=== PATIENT | male | born 1950 | race Caucasian/White ===

== ENCOUNTER 2023-11-17 01:14 | Emergency (ER) | payer MEDICARE ==
[2023-11-17 01:35] VITALS: TEMP 98.2
[2023-11-17 03:00] LABS: Appearance Clear (Clear); Bilirubin Negative (Negative); Blood Negative (Negative); Glucose, Urine Negative (Negative); Ketones Negative (Negative); Leukocyte Esterase Negative (Negative); Nitrite Negative (Negative); Ph 7.5 (4.6-8.0); Protein,Urine Dip 30 (Negative); Urobilinogen 0.2 mg/dL (0.2)
[2023-11-17 03:02] LABS: ADD URINE CULTURE? NO (NO); Bacteria None Seen /HPF (None Seen); Epithelial Cells None Seen /HPF (None Seen); Hyaline Casts NONE SEEN /LPF (0-2); RBC 0-2 /HPF (0-5); WBC 0-2 /HPF (0-5)
[2023-11-17 03:17] VITALS: O2SAT 96
--- NOTE | 2023-11-17 04:02 | ERPHSYRPT ---
- History of Present Illness Time Seen by Provider: 11/17/23 04:01 Patient Subjective Stated Complaint: per ems patient called ambulance for increased in frequency of urination that started within the last few hours Triage Nursing Assessment: pt arrived by [facility] ems, pt ambulatory from ems cot to ER cot with assist x 1 with his personal cane as well, pt alert and oriented x3, skin pwd, pt c/o an increase in frequency of urination, pt denies any pain/discomfort, fever, body aches, abnormal color of urine. pt is in zero pain. pt is hypertensive but has stopped taking his home medication including his bp medication a few years ago, pt states his PCP is Dr. Tillman but has not been seen for a least a year per pt. Physician History: 73 years old male with a history of hypertension not taking any medications presented in the ER with complaints of increased urinary frequency started almost 2 to 3 hours ago. Patient reports he has a constant urge to go without any dysuria. No flank pain. Denies any hematuria. No abdominal pain nausea or vomiting, fever or chills reported. Patient has no other complaints. Increased urinary frequency. Allergies/Adverse Reactions: No Known Drug Allergies Allergy (Verified 11/17/23 01:18) Hx Tetanus, Diphtheria Vaccination/Date Given: No (unknown) Hx Influenza Vaccination/Date Given: No (2014) Hx Pneumococcal Vaccination/Date Given: No (unknown) Immunizations Up to Date: No Travel Risk - International Travel Have you traveled outside of the country in past 3 weeks: No - Coronavirus Screening Are you exhibiting any of the following symptoms?: No Close contact with a COVID-19 positive Pt in past 14-21 Days: No - Vaccine Status Have you recieved a Covid-19 vaccination: No - Past Medical History Pertinent Past Medical History: Yes Neurological History: No Pertinent History ENT History: Other Cardiac History: High Cholesterol, Hypertension Respiratory History: Sleep Apnea Endocrine Medical History: No Pertinent History Musculoskeletal History: Fractures GI Medical History: No Pertinent History History: No Pertinent History Psycho-Social History: No Pertinent History Male Reproductive Disorders: No Pertinent History Other Medical History: detached retina, both arms have broke. Rotator cuff surgery on the right. Broke left arm in February 2013 - Past Surgical History Past Surgical History: Yes Neuro Surgical History: No Pertinent History Cardiac: No Pertinent History Respiratory: No Pertinent History Gastrointestinal: No Pertinent History Genitourinary: No Pertinent History Musculoskeletal: Orthopedic Surgery Male Surgical History: No Pertinent History Other Surgical History: eye surgery, bryce arm fx, rotator cuff - Social History Smoking Status: Never smoker Exposure to second hand smoke: No Drug Use: none Patient Lives Alone: No - Review of Systems Constitutional: No Symptoms Eyes: No Symptoms Respiratory: No Symptoms Cardiac: No Symptoms Abdominal/Gastrointestinal: No Symptoms Genitourinary Symptoms: Frequency Musculoskeletal: No Symptoms Neurological: No Symptoms Endocrine: No Symptoms - Nursing Vital Signs Nursing Vital Signs: Initial Vital Signs Temperature 98.2 F 11/17/23 01:19 Pulse Rate 82 11/17/23 01:19 Respiratory Rate 18 11/17/23 01:19 Blood Pressure 210/110 11/17/23 01:19 O2 Sat by Pulse Oximetry 96 11/17/23 01:19 Pain Scale Pain Intensity 0 - Physical Exam General Appearance: no apparent distress Eye Exam: PERRL/EOMI Ears, Nose, Throat Exam: normal ENT inspection Neck Exam: normal inspection, non-tender, supple, full range of motion Respiratory Exam: normal breath sounds, lungs clear Cardiovascular Exam: regular rate/rhythm, normal heart sounds Gastrointestinal/Abdomen Exam: soft, normal bowel sounds, No tenderness Back Exam: normal inspection, No CVA tenderness Extremity Exam: normal inspection, normal range of motion Neurologic Exam: alert, oriented x 3, cooperative SpO2 Interpretation: normal SpO2: 96 O2 Delivery: Room Air Ordered Tests: Active Orders 24 hr Category Date Time Status UA W/RFX UR CULTURE Stat Lab 11/17/23 02:45 Completed Medication Summary Discontinued Medications Generic Name Dose Route Start Last Admin Trade Name Mary PRN Reason Stop Dose Admin Clonidine 0.2 mg 11/17/23 04:33 11/17/23 04:35 Clonidine Hcl 0.1 Mg Tablet PO 11/17/23 04:34 0.2 mg STAT ONE Administration Clonidine Confirm 11/17/23 04:33 Clonidine Hcl 0.1 Mg Tablet Administered 11/17/23 04:34 Dose 0.2 mg .ROUTE .STK-MED ONE Lab/Rad Data: Laboratory Results 11/17/23 Range/Units 02:45 Urine Color Yellow (Yellow) Urine Appearance Clear (Clear) Urine pH 7.5 (4.6-8.0) Ur Specific [place] 1.010 (1.005-1.030) Urine Protein 30 (Negative) Urine Glucose (UA) Negative (Negative) mg/dL Urine Ketones Negative (Negative) Urine Blood Negative (Negative) Urine Nitrite Negative (Negative) Urine Bilirubin Negative (Negative) Urine Urobilinogen 0.2 (0.2) mg/dL Ur Leukocyte Esterase Negative (Negative) U Hyaline Cast (Auto) NONE SEEN (0-2) /LPF Urine Microscopic RBC 0-2 (0-5) /HPF Urine Microscopic WBC 0-2 (0-5) /HPF Ur Epithelial Cells None Seen (None Seen) /HPF Urine Bacteria None Seen (None Seen) /HPF Urine Culture Reflexed NO (NO) - Progress Progress: improved Progress Note: 11/17/23 04:59 73 years old is evaluated in the ER for increased urinary frequency. Patient has no other complaints. Has no UTI. Patient urinated only once while in the ER. Is possible or related to BPH but patient denies complaint of incomplete voiding as or hesitancy. Also symptoms started few hours ago. I do not think patient needs antibiotics. Recommended outpatient follow-up. Patient blood pressure is also elevated in 200s and patient is supposed to be taking an tihypertensive but stopped taking on its own long time ago. I have given him clonidine at his blood pressure is improved. I have sent the prescription of losartan/hydrochlorothiazide to pharmacy and advised patient to have outpatient follow-up early next week. Discussed signs symptoms of worsening needing return to ER which she seems understanding. Stable for discharge. Counseled pt/family regarding: lab results, diagnosis Medical Desision Making - Independent Historian Additional History obtained from: Sap Functional Analyst/EMT - Diagnostic Testing Diagnostic test were ordered, analyzed, and reviewed by me: Yes - Departure Departure Disposition: Home Clinical Impression: Increased urinary frequency Condition: Stable Critical Care Time: No Referrals: YURI TILLMAN MD [Primary Care Provider] - Follow up with PCP 1 day Instructions: High Blood Pressure (DC), Malignant Hypertension (DC) Additional Instructions: Keep yourself well-hydrated. Take low-salt diet, regular exercise, monitor your blood pressure regularly, keep a log and take it to your PCP. Follow-up with primary care for reevaluation in 1 to 2 days. Return to ER for worsening symptoms of increased frequency or if have incomplete voiding, hesitancy, urgency, fever chills or flank pain. Prescriptions: Losartan/Hydrochlorothiazide [Losartan-Hctz 50-12.5 mg Tab] 1 each PO DAILY 30 Days #30 tablet
[2023-11-17] MEDS ORDERED: CLONIDINE 0.1 MG TABLET ONE (04:33)
[2023-11-17] MEDS: CLONIDINE 0.1 MG TABLET PO ONE (04:35)
[2023-11-17 05:04] VITALS: BP 126/64; PULSE 66; RESP 15
== END 2023-11-17 05:35 | disposition home or self-care (01) ==
LOC: ED 01:14
DX: R35.0 Frequency of micturition (principal); I10 Essential (primary) hypertension; Z28.310 Unvaccinated for COVID-19
CPT/HCPCS: 81001; 99283; A9270-GY

== ENCOUNTER 2024-05-10 07:48 | Emergency (ER) | payer MEDICARE ==
[2024-05-10 08:02] VITALS: TEMP 97.7
--- NOTE | 2024-05-10 08:02 | ERPHSYRPT ---
- History of Present Illness Time Seen by Provider: 05/10/24 08:01 Source: patient Exam Limitations: no limitations Physician History: The patient presented with acute onset of vomiting and dizziness upon waking up in the morning. He denied any exacerbation of dizziness with head movements or changes in vision. The patient reported a history of monocular vision but stated that there was no recent change in his visual acuity. He confirmed episodes of vomiting but denied the presence of blood in the vomitus. The patient denied any recent illness, cough, congestion, or exposure to sick contacts. He also denied any abdominal pain. The patient has a chronic issue with his foot, characterized by redness and swelling, which he attributed to a past event of blood pooling in the ankle. The exact timeline of this issue was unclear to the patient. He also reported a per sistent headache. The patient denied any known heart valve issues. The patient's last bowel movement was the previous night, which he described as typically being diarrheal, depending on his diet. He reported no shortness of breath. The patient has a history of hypertension and diabetes, for which he previously took blood pressure medication and metformin, respectively. However, he reported discontinuing all medications except for occasional Tylenol. The reason for discontinuation was unclear but seemed to be related to accessibility issues. Timing/Duration: today Severity: moderate Modifying Factors: Improves With: nothing. Worsens With: movement Associated Symptoms: nausea, vomiting, loss of appetite, weakness, No abdominal pain, No shortness of breath, No chest pain, No fever, No headaches Allergies/Adverse Reactions: No Known Drug Allergies Allergy (Verified 05/10/24 07:51) Hx Tetanus, Diphtheria Vaccination/Date Given: No (unknown) Hx Influenza Vaccination/Date Given: No (2014) Hx Pneumococcal Vaccination/Date Given: No (unknown) - Review of Systems All Other Systems: Reviewed and Negative - Past Medical History Pertinent Past Medical History: Yes Neurological History: No Pertinent History ENT History: Other Cardiac History: High Cholesterol, Hypertension Respiratory History: Sleep Apnea Endocrine Medical History: No Pertinent History Musculoskeletal History: Fractures GI Medical History: No Pertinent History History: No Pertinent History Psycho-Social History: No Pertinent History Male Reproductive Disorders: No Pertinent History Other Medical History: detached retina, both arms have broke. Rotator cuff surgery on the right. Broke left arm in February 2013 - Past Surgical History Past Surgical History: Yes Neuro Surgical History: No Pertinent History Cardiac: No Pertinent History Respiratory: No Pertinent History Gastrointestinal: No Pertinent History Genitourinary: No Pertinent History Musculoskeletal: Orthopedic Surgery Male Surgical History: No Pertinent History Other Surgical History: eye surgery, bryce arm fx, rotator cuff - Social History Smoking Status: Never smoker Exposure to second hand smoke: No Drug Use: none Patient Lives Alone: No - Nursing Vital Signs Nursing Vital Signs: Initial Vital Signs Temperature 97.7 F 05/10/24 07:52 Pulse Rate 83 05/10/24 07:52 Respiratory Rate 19 05/10/24 07:52 Blood Pressure 218/129 05/10/24 07:52 O2 Sat by Pulse Oximetry 93 L 05/10/24 07:52 Pain Scale Pain Intensity 0 - Physical Exam General Appearance: no apparent distress, obese Eye Exam: eyes nml inspection Ears, Nose, Throat Exam: normal ENT inspection Neck Exam: normal inspection, non-tender, full range of motion, carotid bruit Respiratory Exam: airway intact, diminished breath sounds, No respiratory distress Cardiovascular Exam: regular rate/rhythm, murmur (3/6 systolic), capillary refill <2 sec, edema (1+ LE) Gastrointestinal/Abdomen Exam: soft, normal bowel sounds, No tenderness, No mass, No guarding, No rebound Back Exam: normal inspection, No CVA tenderness Extremity Exam: other (erythema near right ankle) Neurologic Exam: alert, oriented x 3, cooperative SpO2 Interpretation: normal O2 Delivery: Room Air - Course Nursing assessment & vital signs reviewed: Yes EKG Interpreted by Me: RATE (76), Sinus Rhythm, NORMAL AXIS, prolonged QT interval (453), NORMAL ST-T, Other (OK 290) - CT Exams Head CT Interpretation: Tele-radiologist Report, No/Intracranial Hemorrhag Soft Tissue Neck CT Interpretation: Tele-radiologist Report, Other (<40% carotid stenosis, otherwise unremarkable) Ordered Tests: Active Orders 24 hr Category Date Time Status IV Insertion STAT Care 05/10/24 08:11 Active CTA HEAD W AND/OR WO CONTRAST [CT] Stat Exams 05/10/24 08:14 Completed NECK WITH CONTRAST [CT] Stat Exams 05/10/24 08:14 Completed CBC W DIFF Stat Lab 05/10/24 08:38 Completed CMP Stat Lab 05/10/24 08:38 Completed ESR [Erythrocyte Sedimentation Rate] Stat Lab 05/10/24 08:38 Completed LIPASE Stat Lab 05/10/24 08:38 Completed LIPID PROFILE Stat Lab 05/10/24 08:38 Completed Lactic Acid Stat Lab 05/10/24 08:24 Completed NT PRO BNPII Stat Lab 05/10/24 08:38 Completed OB-FECAL SCREEN Stat Lab 05/10/24 Ordered TROPONIN Q4H Lab 05/10/24 08:38 Completed TROPONIN Q4H Lab 05/10/24 12:15 Ordered TROPONIN Q4H Lab 05/10/24 16:15 Ordered TROPONIN Q4H Lab 05/10/24 20:15 Ordered TSH, 3RD Generation Routine Lab 05/10/24 08:16 Completed UA W/RFX UR CULTURE Stat Lab 05/10/24 08:56 Completed Medication Summary Discontinued Medications Generic Name Dose Route Start Last Admin Trade Name Freq PRN Reason Stop Dose Admin Enalaprilat 2.5 mg 05/10/24 09:21 05/10/24 10:00 Enalaprilat 2.5 Mg Injection IV 05/10/24 09:22 2.5 mg STAT ONE Administration Enalaprilat Confirm 05/10/24 09:59 Enalaprilat 2.5 Mg Injection Administered 05/10/24 10:00 Dose 2.5 mg IV .STK-MED ONE Furosemide 40 mg 05/10/24 08:15 05/10/24 08:44 Furosemide 40 Mg/4 Ml Vial IV 05/10/24 08:16 40 mg STAT ONE Administration Furosemide Confirm 05/10/24 08:41 Furosemide 40 Mg/4 Ml Vial Administered 05/10/24 08:42 Dose 40 mg .ROUTE .STK-MED ONE Sodium Chloride 1,000 mls @ 999 mls/hr 05/10/24 08:11 05/10/24 09:54 Sodium Chloride 0.9% 1000 Ml IV 05/10/24 09:11 Infused .Q1H1M STA Infusion Sodium Chloride Confirm 05/10/24 08:41 Sodium Chloride 0.9% 1000 Ml Administered 05/10/24 08:42 Dose 1,000 mls @ ud .ROUTE .STK-MED ONE Ceftriaxone Sodium 2 gm in 100 mls @ 200 mls/hr 05/10/24 09:22 05/10/24 10:33 Rocephin 2 Gm/100 Ml Nacl IV 05/10/24 09:51 Infused STAT ONE Infusion Ceftriaxone Sodium Confirm 05/10/24 09:59 Rocephin 2 Gm/100 Ml Nacl Administered 05/10/24 10:00 Dose 2 gm in 100 mls @ ud IV .STK-MED ONE Labetalol HCl 20 mg 05/10/24 08:16 05/10/24 08:46 Labetalol Hcl 20 Mg/4 Ml Disp.Syringe IV 05/10/24 08:17 10 mg STAT ONE Administration Labetalol HCl Confirm 05/10/24 08:41 Labetalol Hcl 20 Mg/4 Ml Disp.Syringe Administered 05/10/24 08:42 Dose 20 mg IV .STK-MED ONE Lab/Rad Data: Laboratory Result Diagrams 05/10/24 08:38 05/10/24 08:38 Laboratory Results 05/10/24 05/10/24 05/10/24 Range/Units 08:56 08:38 08:38 WBC (4.23-9.07) x10^3/uL RBC (4.63-6.08) x10^6/uL Hgb (13.7-17.5) g/dL Hct (40.1-51.0) % MCV (79.0-92.2) fL MCH (25.7-32.2) pg MCHC (32.3-36.5) g/dL RDW (11.6-14.4) % Plt Count (163-337) x10^3/uL MPV (9.4-12.4) fL Gran % (34.0-67.9) % Immature Gran % (Auto) (0.001-0.429) % Nucleat RBC Rel Count (0.00-0.2) % Eos # (Auto) (0.04-0.54) x10^3/uL Immature Gran # (Auto) (0.001-0.031) x10^3u/L Absolute Lymphs (auto) (1.32-3.57) x10^3/uL Absolute Monos (auto) (0.30-0.82) x10^3/uL Absolute Nucleated RBC (0.00-0.012) x10^3u/L Lymphocytes % (21.8-53.1) % Monocytes % (5.3-12.2) % Eosinophils % (0.8-7.0) % Basophils % (0.2-1.2) % Absolute Granulocytes (1.78-5.38) x10^3/uL Basophils # (0.01-0.08) x10^3/uL ESR (0-15) mm/hr Sodium (135-145) mmol/L Potassium (3.5-5.1) mmol/L Chloride (98-107) mmol/L Carbon Dioxide (22-30) mmol/L Anion Gap (5-15) MEQ/L BUN (9-20) mg/dL Creatinine (0.66-1.25) mg/dL Estimated GFR ML/MIN Glucose (74-106) mg/dL Hemoglobin A1c 7.11 H (4.5-6.0) % Lactic Acid (0.4-2.0) Calcium (8.4-10.2) mg/dL Total Bilirubin (0.2-1.3) mg/dL AST (17-59) U/L ALT (0-50) U/L Alkaline Phosphatase (38-126) U/L Troponin I (0.000-0.033) ng/mL NT-Pro-B Natriuret Pep (<300) pg/mL Serum Total Protein (6.3-8.2) g/dL Albumin (3.5-5.0) g/dL Triglycerides (30-150) mg/dL Cholesterol (50-200) mg/dL LDL Cholesterol (30-100) mg/dL HDL Cholesterol (40-60) mg/dL Heart Disease Risk Ratio Lipase (23-300) U/L TSH 3rd Generation (0.470-4.680) mIU/L Urine Color Yellow (Yellow) Urine Appearance Clear (Clear) Urine pH 7.5 (4.6-8.0) Ur Specific [place] 1.010 (1.005-1.030) Urine Protein 30 (Negative) Urine Glucose (UA) Negative (Negative) mg/dL Urine Ketones Negative (Negative) Urine Blood Negative (Negative) Urine Nitrite Negative (Negative) Urine Bilirubin Negative (Negative) Urine Urobilinogen 0.2 (0.2) mg/dL Ur Leukocyte Esterase Negative (Negative) U Hyaline Cast (Auto) NONE SEEN (0-2) /LPF Urine Microscopic RBC 0-2 (0-5) /HPF Urine Microscopic WBC 0-2 (0-5) /HPF Ur Epithelial Cells None Seen (None Seen) /HPF Urine Bacteria None Seen (None Seen) /HPF Urine Culture Reflexed NO (NO) Influenza Type A Ag NEGATIVE (NEGATIVE) Influenza Type B Ag NEGATIVE (NEGATIVE) RSV (PCR) NEGATIVE (NEGATIVE) SARS-CoV-2 (PCR) NEGATIVE (NEGATIVE) 05/10/24 05/10/24 05/10/24 Range/Units 08:38 08:38 08:38 WBC (4.23-9.07) x10^3/uL RBC (4.63-6.08) x10^6/uL Hgb (13.7-17.5) g/dL Hct (40.1-51.0) % MCV (79.0-92.2) fL MCH (25.7-32.2) pg MCHC (32.3-36.5) g/dL RDW (11.6-14.4) % Plt Count (163-337) x10^3/uL MPV (9.4-12.4) fL Gran % (34.0-67.9) % Immature Gran % (Auto) (0.001-0.429) % Nucleat RBC Rel Count (0.00-0.2) % Eos # (Auto) (0.04-0.54) x10^3/uL Immature Gran # (Auto) (0.001-0.031) x10^3u/L Absolute Lymphs (auto) (1.32-3.57) x10^3/uL Absolute Monos (auto) (0.30-0.82) x10^3/uL Absolute Nucleated RBC (0.00-0.012) x10^3u/L Lymphocytes % (21.8-53.1) % Monocytes % (5.3-12.2) % Eosinophils % (0.8-7.0) % Basophils % (0.2-1.2) % Absolute Granulocytes (1.78-5.38) x10^3/uL Basophils # (0.01-0.08) x10^3/uL ESR 70 H (0-15) mm/hr Sodium 136 (135-145) mmol/L Potassium 4.1 (3.5-5.1) mmol/L Chloride 99 (98-107) mmol/L Carbon Dioxide 30 (22-30) mmol/L Anion Gap 11.4 (5-15) MEQ/L BUN 7 L (9-20) mg/dL Creatinine 0.81 (0.66-1.25) mg/dL Estimated GFR 93.1 ML/MIN Glucose 161 H (74-106) mg/dL Hemoglobin A1c (4.5-6.0) % Lactic Acid (0.4-2.0) Calcium 9.4 (8.4-10.2) mg/dL Total Bilirubin 0.80 (0.2-1.3) mg/dL AST 45 (17-59) U/L ALT 27 (0-50) U/L Alkaline Phosphatase 93 (38-126) U/L Troponin I < 0.012 (0.000-0.033) ng/mL NT-Pro-B Natriuret Pep 1550 (<300) pg/mL Serum Total Protein 7.8 (6.3-8.2) g/dL Albumin 4.3 (3.5-5.0) g/dL Triglycerides 164 H (30-150) mg/dL Cholesterol 231 H (50-200) mg/dL LDL Cholesterol 155 H (30-100) mg/dL HDL Cholesterol 45 (40-60) mg/dL Heart Disease Risk Ratio 5.0 Lipase 23 (23-300) U/L TSH 3rd Generation (0.470-4.680) mIU/L Urine Color (Yellow) Urine Appearance (Clear) Urine pH (4.6-8.0) Ur Specific [place] (1.005-1.030) Urine Protein (Negative) Urine Glucose (UA) (Negative) mg/dL Urine Ketones (Negative) Urine Blood (Negative) Urine Nitrite (Negative) Urine Bilirubin (Negative) Urine Urobilinogen (0.2) mg/dL Ur Leukocyte Esterase (Negative) U Hyaline Cast (Auto) (0-2) /LPF Urine Microscopic RBC (0-5) /HPF Urine Microscopic WBC (0-5) /HPF Ur Epithelial Cells (None Seen) /HPF Urine Bacteria (None Seen) /HPF Urine Culture Reflexed (NO) Influenza Type A Ag (NEGATIVE) Influenza Type B Ag (NEGATIVE) RSV (PCR) (NEGATIVE) SARS-CoV-2 (PCR) (NEGATIVE) 05/10/24 05/10/24 05/10/24 Range/Units 08:38 08:24 08:16 WBC 7.5 (4.23-9.07) x10^3/uL RBC 5.11 (4.63-6.08) x10^6/uL Hgb 14.5 (13.7-17.5) g/dL Hct 44.9 (40.1-51.0) % MCV 87.9 (79.0-92.2) fL MCH 28.4 (25.7-32.2) pg MCHC 32.3 (32.3-36.5) g/dL RDW 13.0 (11.6-14.4) % Plt Count 163 (163-337) x10^3/uL MPV 10.1 (9.4-12.4) fL Gran % 79.3 H (34.0-67.9) % Immature Gran % (Auto) 0.3 (0.001-0.429) % Nucleat RBC Rel Count 0.0 (0.00-0.2) % Eos # (Auto) 0.08 (0.04-0.54) x10^3/uL Immature Gran # (Auto) 0.02 (0.001-0.031) x10^3u/L Absolute Lymphs (auto) 0.94 L (1.32-3.57) x10^3/uL Absolute Monos (auto) 0.48 (0.30-0.82) x10^3/uL Absolute Nucleated RBC 0.00 (0.00-0.012) x10^3u/L Lymphocytes % 12.6 L (21.8-53.1) % Monocytes % 6.4 (5.3-12.2) % Eosinophils % 1.1 (0.8-7.0) % Basophils % 0.3 (0.2-1.2) % Absolute Granulocytes 5.94 H (1.78-5.38) x10^3/uL Basophils # 0.02 (0.01-0.08) x10^3/uL ESR (0-15) mm/hr Sodium (135-145) mmol/L Potassium (3.5-5.1) mmol/L Chloride (98-107) mmol/L Carbon Dioxide (22-30) mmol/L Anion Gap (5-15) MEQ/L BUN (9-20) mg/dL Creatinine (0.66-1.25) mg/dL Estimated GFR ML/MIN Glucose (74-106) mg/dL Hemoglobin A1c (4.5-6.0) % Lactic Acid 1.7 (0.4-2.0) Calcium (8.4-10.2) mg/dL Total Bilirubin (0.2-1.3) mg/dL AST (17-59) U/L ALT (0-50) U/L Alkaline Phosphatase (38-126) U/L Troponin I (0.000-0.033) ng/mL NT-Pro-B Natriuret Pep (<300) pg/mL Serum Total Protein (6.3-8.2) g/dL Albumin (3.5-5.0) g/dL Triglycerides (30-150) mg/dL Cholesterol (50-200) mg/dL LDL Cholesterol (30-100) mg/dL HDL Cholesterol (40-60) mg/dL Heart Disease Risk Ratio Lipase (23-300) U/L TSH 3rd Generation 2.920 (0.470-4.680) mIU/L Urine Color (Yellow) Urine Appearance (Clear) Urine pH (4.6-8.0) Ur Specific [place] (1.005-1.030) Urine Protein (Negative) Urine Glucose (UA) (Negative) mg/dL Urine Ketones (Negative) Urine Blood (Negative) Urine Nitrite (Negative) Urine Bilirubin (Negative) Urine Urobilinogen (0.2) mg/dL Ur Leukocyte Esterase (Negative) U Hyaline Cast (Auto) (0-2) /LPF Urine Microscopic RBC (0-5) /HPF Urine Microscopic WBC (0-5) /HPF Ur Epithelial Cells (None Seen) /HPF Urine Bacteria (None Seen) /HPF Urine Culture Reflexed (NO) Influenza Type A Ag (NEGATIVE) Influenza Type B Ag (NEGATIVE) RSV (PCR) (NEGATIVE) SARS-CoV-2 (PCR) (NEGATIVE) - Progress Progress: improved Progress Note: Will r/o posterior circulation CVA with head/neck CTA. 3/6 systolic murmur appreciated. BNP 1500. CBC wnl. CMP remarkable only for hyperglycemia of 161. HbA1c 7.1 which is acceptable range for his age. Initial troponin and EKG neg for cardiac cause. Lactate wnl. ESR elevated at 70, non specific marker, but patient does have erythema of right LE that has increased recently. Will give 2g IV Rocephin today and dc home on Keflex 500mg TID x 7 days with close f/u with PCP. Patient had no nausea on evaluation and had a QT of 453 so antiemetic held until sxs develop. 05/10/24 11:27 CTA showed no signs of posterior circulation CVA, <40% carotid stenosis, no embolism. DC home with Amlodipine 5mg QD for uncontrolled HTN, follow up w/ PCP. Counseled pt/family regarding: lab results, diagnosis, need for follow-up, rad results Medical Desision Making - Diagnostic Testing Diagnostic test were ordered, analyzed, and reviewed by me: Yes Radiological Interpretation: Interpreted by me, Reviewed by me, Teleradiologist Report - Risk of complications The pt has a mod risk of morbidity or mortality based on: Need for prescription drug management - Departure Departure Disposition: Home Clinical Impression: Nausea and vomiting, Murmur, cardiac, Severe uncontrolled hypertension Cellulitis Qualifiers: Site of cellulitis: extremity Site of cellulitis of extremity: lower extremity Laterality: right Qualified Code(s): L03.115 - Cellulitis of right lower limb Condition: Good Critical Care Time: No Referrals: YURI TILLMAN MD [Primary Care Provider] - Follow up/PCP as directed Instructions: High blood pressure in adults, Cellulitis (Skin Infection), Adult ED, Nausea and Vomiting, Adult ED Prescriptions: Amlodipine Besylate 1 tablet PO DAILY 30 Days #30 tablet Cephalexin Mh 500 mg [Keflex 500 mg] 500 mg PO TID 7 Days #21 cap
[2024-05-10 08:30] LABS: Absolute Neutrophil Ct (ANC) 5.94 x10^3/uL (1.78-5.38); BASOPHIL % 0.3 % (0.2-1.2); Basophil (Absolute #) 0.02 x10^3/uL (0.01-0.08); Eosinophil % 1.1 % (0.8-7.0); Eosinophil (Absolute #) 0.08 x10^3/uL (0.04-0.54); Hematocrit 44.9 % (40.1-51.0); Hemoglobin 14.5 g/dL (13.7-17.5); IMMATURE GRAN # 0.02 x10^3u/L (0.001-0.031); IMMATURE GRAN % 0.3 % (0.001-0.429); Lymphocyte (Absolute #) 0.94 x10^3/uL (1.32-3.57); Lymphocytes % 12.6 % (21.8-53.1); Mean Cell Volume 87.9 fL (79.0-92.2); Mean Corpuscular Hemoglobin 28.4 pg (25.7-32.2); Mean Corpuscular Hgb Concent. 32.3 g/dL (32.3-36.5); Mean Platelet Volume 10.1 fL (9.4-12.4); Monocyte (Absolute #) 0.48 x10^3/uL (0.30-0.82); Monocytes % 6.4 % (5.3-12.2); Neutrophil % 79.3 % (34.0-67.9); Platelet Count 163 x10^3/uL (163-337); Red Blood Count 5.11 x10^6/uL (4.63-6.08); White Blood Count 7.5 x10^3/uL (4.23-9.07)
[2024-05-10] MEDS ORDERED: Lasix 40 MG/4 ML ONE (08:41)
[2024-05-10] MEDS ORDERED: Sodium Chloride 0.9% 1000 ML 1,000 ML ONE (08:41)
[2024-05-10] MEDS ORDERED: TRANDATE 20 MG/4 ML SYRINGE IV ONE (08:41)
[2024-05-10] MEDS: Lasix 40 MG/4 ML IV ONE (08:44)
[2024-05-10] MEDS: Sodium Chloride 0.9% 1000 ML 1,000 ML IV STA (08:44)
[2024-05-10] MEDS: TRANDATE 20 MG/4 ML SYRINGE IV ONE (08:46)
[2024-05-10 08:58] LABS: NT PRO BNPII 1550 pg/mL (<300); TROPONIN < 0.012 ng/mL (0.000-0.033)
[2024-05-10 09:06] LABS: ALBUMIN 4.3 g/dL (3.5-5.0); ANION GAP 11.4 MEQ/L (5-15); BILIRUBIN,TOTAL 0.8 mg/dL (0.2-1.3); Calcium 9.4 mg/dL (8.4-10.2); Creatinine 1 0.81 mg/dL (0.66-1.25); EST GLOMERULAR FILTRATION RATE 93.1 ML/MIN; Potassium 4.1 mmol/L (3.5-5.1); Total Protein 7.8 g/dL (6.3-8.2)
[2024-05-10 09:08] LABS: Appearance Clear (Clear); Bacteria None Seen /HPF (None Seen); Bilirubin Negative (Negative); Blood Negative (Negative); Epithelial Cells None Seen /HPF (None Seen); Glucose, Urine Negative (Negative); Hyaline Casts NONE SEEN /LPF (0-2); Ketones Negative (Negative); Leukocyte Esterase Negative (Negative); Nitrite Negative (Negative); Ph 7.5 (4.6-8.0); Protein,Urine Dip 30 (Negative); RBC 0-2 /HPF (0-5); Urobilinogen 0.2 mg/dL (0.2); WBC 0-2 /HPF (0-5)
[2024-05-10 09:15] LABS: ADD URINE CULTURE? NO (NO)
[2024-05-10 09:20] LABS: INFLUENZA A NEGATIVE (NEGATIVE); INFLUENZA B NEGATIVE (NEGATIVE); RESPIRATORY SYNCTIAL VIRUS NEGATIVE (NEGATIVE); SARS-CoV-2 Xpert Express NEGATIVE (NEGATIVE)
[2024-05-10] MEDS ORDERED: ENALAPRILAT 2.5 MG INJECTION IV ONE (09:59)
[2024-05-10] MEDS ORDERED: ROCEPHIN 2 GM/100 ML NACL 2 GM/100 ML IVPB IV ONE (09:59)
[2024-05-10] MEDS: ENALAPRILAT 2.5 MG INJECTION IV ONE (10:00)
[2024-05-10] MEDS: ROCEPHIN 2 GM/100 ML NACL 2 GM/100 ML IVPB IV ONE (10:01)
[2024-05-10 10:40] VITALS: O2SAT 94
--- NOTE | 2024-05-10 11:13 | XRAY ---
CLINICAL HISTORY: dizziness COMPARISON: None. TECHNIQUE: Axial CT angiography of the head was done without and with contrast and sagittal and coronal reformats with MIP reconstructions. One of these 3D techniques was utilized: Maximum Intensity Pixel (MIP), 3D Reconstructed Images, Volume Rendered Images, Surface Shaded Rendering. One of the following dose reduction techniques was utilized for this exam: Automated exposure control, adjustment of the mA and/or kV according to patient size, and use of iterative reconstruction. 8- CC Isovue 370 was given as an IV contrast.: FINDINGS: Intracranial Arteries: Mild intimal atherosclerotic calcifications were noted at the cavernous portions of the internal carotid arteries, and M1 segment of the left MCA with no stenosis. The rest of the intracranial portions of the internal carotid arteries, anterior cerebral arteries, middle cerebral arteries, posterior cerebral arteries, basilar artery, and vertebral arteries are well-opacified. No evidence of aneurysm, stenosis, or occlusion. No significant atherosclerotic changes. [place]: The [place] is complete. The normal caliber of the communicating arteries. No vascular malformations or aneurysms. Brain Parenchyma: Diffuse periventricular white matter hypodensity. Normal attenuation of the cerebral hemispheres, cerebellum, and brainstem. No evidence of acute infarct, hemorrhage, or mass effect. No abnormal areas of enhancement post-contrast. Ventricular System: Dilated ventricular system consistent with senile atrophic changes. Subarachnoid Spaces: Dilated cortical sulci and extra-axial CSF spaces. Cerebellum and Brainstem: Normal size and signal. No masses, lesions, or areas of abnormal signal. No abnormal enhancement post-contrast. Skull and Meninges: Normal skull morphology. No evidence of meningeal enhancement or thickening. IMPRESSION: Mild intimal atherosclerotic calcifications were noted at the cavernous portions of the internal carotid arteries, and M1 segment of the left MCA with no stenosis. Brain involutional changes in the form of age-related cortical atrophic changes and chronic microvascular ischemic changes. Electronically Signed by: Tiago Serra MD. (05/10/2024 11:10:05 EDT)
--- NOTE | 2024-05-10 11:17 | XRAY ---
CLINICAL HISTORY: dizziness COMPARISON: None. TECHNIQUE: CT angiography study of the neck vessels with IV contrast was performed and multiple axial sections were obtained with coronal and sagittal reconstructions. 80 ML Isovue 370 was administered. One of the following dose reduction techniques were utilized for this exam: Automated exposure control, adjustment of the mA and/or kV according to patient size, and use of iterative reconstruction. One of these 3D techniques was utilized: Maximum Intensity Pixel (MIP), 3D Reconstructed Images, Volume Rendered Images, Surface Shaded Rendering. FINDINGS: Carotid Arteries: Few calcific plaques were noted along the left common carotid artery, the largest noted in the carotid bulb extending to the proximal left internal carotid artery causing 40-50% stenosis. Calcific plaques were noted at the right carotid bulb extending to the proximal right internal and external carotid arteries causing 20-30% stenosis. The other scanned common carotid arteries, internal carotid arteries, and external carotid arteries bilaterally are well-opacified. No evidence of significant stenosis, occlusion, or aneurysm. Vertebral Arteries: Vertebral arteries bilaterally are well-opacified. No evidence of significant stenosis, occlusion, or aneurysm. No significant atherosclerotic changes. Aortic arch : The aortic arch and its branches' proximal parts showed intimal atherosclerotic calcifications with calcific plaques causing insignificant stenosis. Thyroid Gland: A suspected tiny hypodense nodule was noted in the right thyroid lobe, an ultrasound correlation is needed. Normal size and morphology. No masses. Normal enhancement post-contrast. Bones: Cervical spine shows significant degenerative changes with cervical disc/osteophyte complexes. IMPRESSION: Few calcific plaques were noted along the left common carotid artery, the largest noted in the carotid bulb extending to the proximal left internal carotid artery causing 40-50% stenosis. Calcific plaques were noted at the right carotid bulb extending to the proximal right internal and external carotid arteries causing 20-30% stenosis. The aortic arch and its branches' proximal parts showed intimal atherosclerotic calcifications with calcific plaques causing insignificant stenosis. A suspected tiny hypodense nodule was noted in the right thyroid lobe, an ultrasound correlation is needed. Cervical spine degenerative changes with cervical disc/osteophyte complexes. Electronically Signed by: Tiago Serra MD. (05/10/2024 11:12:54 EDT)
[2024-05-10 11:30] VITALS: BP 150/68; PULSE 63; RESP 12
== END 2024-05-10 12:03 | disposition home or self-care (01) ==
LOC: ED 07:48
DX: R11.2 Nausea with vomiting, unspecified (principal); R01.1 Cardiac murmur, unspecified; I10 Essential (primary) hypertension; L03.115 Cellulitis of right lower limb; R42 Dizziness and giddiness; R51.9 Headache, unspecified; E11.9 Type 2 diabetes mellitus without complications; E78.5 Hyperlipidemia, unspecified
CPT/HCPCS: 0241U; 36000; 36415; 70491; 70496; 80053; 80061; 81001; 83036; 83605; 83690; 83721; 83880; 84443; 84484; 85025; 85652; 96365; 96374; 96375; 99284; J0696; J1940

== ENCOUNTER 2024-06-15 19:33 | Emergency (ER) | payer MEDICARE ==
--- NOTE | 2024-06-15 19:37 | ERPHSYRPT ---
- History of Present Illness Time Seen by Provider: 06/15/24 19:37 Source: patient Exam Limitations: no limitations Physician History: This is a morbidly obese 74-year-old white white male patient who is brought into the emergency department by the paramedics. He is a patient of Dr. Tillman. Patient's sister then came soon after. The patient presents with red swollen right ankle and fever. Patient had not been on antibiotics but did find some old antibiotics that he took for the last 1 to 2 days. He has associated symptoms of generalized weakness. His symptoms have been present for approximately 2 days. Patient has a history of hyperlipidemia, hypertension and sleep apnea. Fever Severity: moderate Fever Therapy INSOLE PRESSER: none Associated Symptoms: weakness, No chest pain, No cough, No muscle aches, No nausea/vomiting, No shortness of breath, No sore throat Allergies/Adverse Reactions: No Known Drug Allergies Allergy (Verified 06/15/24 19:40) Home Medications: Losartan/Hydrochlorothiazide [Losartan-Hctz 50-12.5 mg Tab] 1 tab PO DAILY 06/15/24 [History] Oxycodone HCl/Acetaminophen [Percocet 5-325 mg Tablet] 1 tab PO Q6HPRN PRN 06/15/24 [History] Hx Tetanus, Diphtheria Vaccination/Date Given: No (unknown) Hx Influenza Vaccination/Date Given: No (2014) Hx Pneumococcal Vaccination/Date Given: No (unknown) Travel Risk - International Travel Have you traveled outside of the country in past 3 weeks: No - Emerging Infectious Disease Are you exhibiting symptoms associated with any current EIDs: No Symptoms: Fever - Review of Systems Constitutional: Fever, Weakness Eyes: No Symptoms Ears, Nose, & Throat: No Symptoms Respiratory: No Symptoms Cardiac: No Symptoms Abdominal/Gastrointestinal: No Symptoms Genitourinary Symptoms: No Symptoms Musculoskeletal: No Symptoms Skin: Cellulitis (Right ankle) Neurological: No Symptoms Psychological: No Symptoms Endocrine: No Symptoms Hematologic/Lymphatic: No Symptoms Immunological/Allergic: No Symptoms All Other Systems: Reviewed and Negative - Past Medical History Pertinent Past Medical History: Yes Neurological History: No Pertinent History ENT History: Other Cardiac History: High Cholesterol, Hypertension Respiratory History: Sleep Apnea Endocrine Medical History: No Pertinent History Musculoskeletal History: Fractures GI Medical History: No Pertinent History History: No Pertinent History Psycho-Social History: No Pertinent History Male Reproductive Disorders: No Pertinent History Other Medical History: detached retina, both arms have broke. Rotator cuff surgery on the right. Broke left arm in February 2013 - Past Surgical History Past Surgical History: Yes Neuro Surgical History: No Pertinent History Cardiac: No Pertinent History Respiratory: No Pertinent History Gastrointestinal: No Pertinent History Genitourinary: No Pertinent History Musculoskeletal: Orthopedic Surgery Male Surgical History: No Pertinent History Other Surgical History: eye surgery, bryce arm fx, rotator cuff - Social History Smoking Status: Never smoker Exposure to second hand smoke: No Drug Use: none Patient Lives Alone: No - Social Determinants of Health Will the patient participate in the screening: Declined to provide - Nursing Vital Signs Nursing Vital Signs: Initial Vital Signs Temperature 102 F 06/15/24 19:41 Pulse Rate 97 H 06/15/24 19:41 Respiratory Rate 28 H 06/15/24 19:41 Blood Pressure 170/106 06/15/24 19:41 O2 Sat by Pulse Oximetry 93 L 06/15/24 19:41 Pain Scale Pain Intensity 0 - Physical Exam General Appearance: no apparent distress, alert, obese Eye Exam: PERRL/EOMI, eyes nml inspection ENT Exam: normal ENT inspection, no apparent trauma, hearing grossly normal, TMs normal, pharynx normal Neck Exam: normal inspection, non-tender, supple, full range of motion, trachea midline Respiratory Exam: normal breath sounds, chest non-tender, lungs clear, no respiratory distress, no accessory muscle use, decreased breath sounds, No respiratory distress Cardiovascular/Chest Exam: normal heart sounds, regular rate/rhythm Gastrointestinal/Abdominal Exam: soft, non tender, no distention, no mass, no guarding, no ecchymosis, no organomegaly, no pulsatile mass, normal bowel sounds Rectal Exam: not done Extremity Exam: normal range of motion, no calf tenderness, pelvis stable, inflammation (Redness medial aspect right ankle with some mild swelling of the foot on the right side), pedal edema (Right foot and ankle. In addition there is chronic venous stasis disease with ulceration medial aspect) Neurologic Exam: alert, oriented x 3, cooperative, assistant gm of content & delivery II-XII nml as tested, normal mood/affect, sensation nml Skin Exam: other (Cellulitis right ankle medial aspect with chronic venous stasis ulceration.) Lymphatic: No adenopathy SpO2 Interpretation: normal - Course Nursing assessment & vital signs reviewed: Yes Ordered Tests: Active Orders 24 hr Category Date Time Status Board Hammer Operator STAT Care 06/15/24 19:54 Active IV Insertion STAT Care 06/15/24 19:54 Active CHEST 1 VIEW (PORTABLE) Stat Exams 06/15/24 19:54 Taken BLOOD CULTURE Stat Lab 06/15/24 19:54 Received CBC W DIFF Stat Lab 06/15/24 20:10 Completed CMP Stat Lab 06/15/24 20:10 Completed CULTURE,WOUND Stat Lab 06/15/24 22:09 Ordered Lactic Acid Stat Lab 06/15/24 20:15 Completed MONO SCREEN Stat Lab 06/15/24 20:10 Completed UA W/RFX UR CULTURE Stat Lab 06/15/24 19:54 Ordered Medication Summary Generic Name Dose Route Start Last Admin Trade Name Freq PRN Reason Stop Dose Admin Sodium Chloride 1,000 mls @ 100 mls/hr 06/15/24 20:00 06/15/24 20:11 Sodium Chloride 0.9% 1000 Ml IV 07/15/24 19:59 100 mls/hr .Q10H PANCHO Administration Ceftriaxone Sodium 1 gm in 100 mls @ 200 mls/hr 06/15/24 22:07 Rocephin 1 Gm / 100 Ml Nacl IV 06/15/24 22:36 STAT ONE Discontinued Medications Generic Name Dose Route Start Last Admin Trade Name Freq PRN Reason Stop Dose Admin Acetaminophen 650 mg 06/15/24 19:54 06/15/24 20:12 Acetaminophen 325 Mg Tablet PO 06/15/24 19:55 650 mg STAT STA Administration Acetaminophen Confirm 06/15/24 20:10 Acetaminophen 325 Mg Tablet Administered 06/15/24 20:11 Dose 650 mg .ROUTE .STK-MED ONE Labetalol HCl 10 mg 06/15/24 22:06 Labetalol Hcl 20 Mg/4 Ml Disp.Syringe IV 06/15/24 22:07 STAT ONE Levofloxacin 500 mg 06/15/24 22:07 Levofloxacin 500 Mg Tablet PO 06/15/24 22:08 STAT ONE Potassium Chloride 20 meq 06/15/24 22:07 Potassium Chloride Tab 10 Meq Tab PO 06/15/24 22:08 STAT ONE Lab/Rad Data: Laboratory Result Diagrams 06/15/24 20:10 06/15/24 20:10 Laboratory Results 06/15/24 06/15/24 06/15/24 Range/Units 20:25 20:15 20:10 WBC (4.23-9.07) x10^3/uL RBC (4.63-6.08) x10^6/uL Hgb (13.7-17.5) g/dL Hct (40.1-51.0) % MCV (79.0-92.2) fL MCH (25.7-32.2) pg MCHC (32.3-36.5) g/dL RDW (11.6-14.4) % Plt Count (163-337) x10^3/uL MPV (9.4-12.4) fL Gran % (34.0-67.9) % Immature Gran % (Auto) (0.001-0.429) % Nucleat RBC Rel Count (0.00-0.2) % Eos # (Auto) (0.04-0.54) x10^3/uL Immature Gran # (Auto) (0.001-0.031) x10^3u/L Absolute Lymphs (auto) (1.32-3.57) x10^3/uL Absolute Monos (auto) (0.30-0.82) x10^3/uL Absolute Nucleated RBC (0.00-0.012) x10^3u/L Lymphocytes % (21.8-53.1) % Monocytes % (5.3-12.2) % Eosinophils % (0.8-7.0) % Basophils % (0.2-1.2) % Absolute Granulocytes (1.78-5.38) x10^3/uL Basophils # (0.01-0.08) x10^3/uL Sodium (135-145) mmol/L Potassium (3.5-5.1) mmol/L Chloride (98-107) mmol/L Carbon Dioxide (22-30) mmol/L Anion Gap (5-15) MEQ/L BUN (9-20) mg/dL Creatinine (0.66-1.25) mg/dL Estimated GFR ML/MIN Glucose (74-106) mg/dL Lactic Acid 2.0 (0.4-2.0) Calcium (8.4-10.2) mg/dL Total Bilirubin (0.2-1.3) mg/dL AST (17-59) U/L ALT (0-50) U/L Alkaline Phosphatase (38-126) U/L Serum Total Protein (6.3-8.2) g/dL Albumin (3.5-5.0) g/dL Monoscreen NEGATIVE (NEGATIVE) Influenza Type A Ag NEGATIVE (NEGATIVE) Influenza Type B Ag NEGATIVE (NEGATIVE) RSV (PCR) NEGATIVE (NEGATIVE) SARS-CoV-2 (PCR) NEGATIVE (NEGATIVE) Group A Strep Antibody (NEGATIVE) 06/15/24 06/15/24 06/15/24 Range/Units 20:10 20:10 19:54 WBC 10.2 H (4.23-9.07) x10^3/uL RBC 4.88 (4.63-6.08) x10^6/uL Hgb 13.8 (13.7-17.5) g/dL Hct 43.6 (40.1-51.0) % MCV 89.3 (79.0-92.2) fL MCH 28.3 (25.7-32.2) pg MCHC 31.7 L (32.3-36.5) g/dL RDW 13.1 (11.6-14.4) % Plt Count 160 L (163-337) x10^3/uL MPV 10.1 (9.4-12.4) fL Gran % 82.0 H (34.0-67.9) % Immature Gran % (Auto) 0.5 H (0.001-0.429) % Nucleat RBC Rel Count 0.0 (0.00-0.2) % Eos # (Auto) 0.08 (0.04-0.54) x10^3/uL Immature Gran # (Auto) 0.05 H (0.001-0.031) x10^3u/L Absolute Lymphs (auto) 0.73 L (1.32-3.57) x10^3/uL Absolute Monos (auto) 0.94 H (0.30-0.82) x10^3/uL Absolute Nucleated RBC 0.00 (0.00-0.012) x10^3u/L Lymphocytes % 7.2 L (21.8-53.1) % Monocytes % 9.2 (5.3-12.2) % Eosinophils % 0.8 (0.8-7.0) % Basophils % 0.3 (0.2-1.2) % Absolute Granulocytes 8.37 H (1.78-5.38) x10^3/uL Basophils # 0.03 (0.01-0.08) x10^3/uL Sodium 138 (135-145) mmol/L Potassium 3.3 L (3.5-5.1) mmol/L Chloride 97 L (98-107) mmol/L Carbon Dioxide 28 (22-30) mmol/L Anion Gap 15.3 H (5-15) MEQ/L BUN 13 (9-20) mg/dL Creatinine 0.94 (0.66-1.25) mg/dL Estimated GFR 85.6 ML/MIN Glucose 198 H (74-106) mg/dL Lactic Acid (0.4-2.0) Calcium 8.9 (8.4-10.2) mg/dL Total Bilirubin 1.00 (0.2-1.3) mg/dL AST 33 (17-59) U/L ALT 22 (0-50) U/L Alkaline Phosphatase 113 (38-126) U/L Serum Total Protein 8.3 H (6.3-8.2) g/dL Albumin 4.2 (3.5-5.0) g/dL Monoscreen (NEGATIVE) Influenza Type A Ag (NEGATIVE) Influenza Type B Ag (NEGATIVE) RSV (PCR) (NEGATIVE) SARS-CoV-2 (PCR) (NEGATIVE) Group A Strep Antibody NOT DETECTED (NEGATIVE) - Progress Progress: unchanged Progress Note: 06/15/24 22:03 My medical decision making and the assignment of moderate complexity to this patient's medical issue today is based on review of the patient's past medical history, review the patient's medication list, reviewed patient drug allergy list, history present illness and physical findings on examination. The workup in this patient includes placement of intravenous line, infusion of normal saline solution, CBC, CMP, lactic acid level, chest x-ray, urinalysis, viral swabs, monotest, wound culture. Differential diagnosis includes but is not limited to cellulitis with wound infection, pneumonia, viral illness 06/15/24 22:10 I interpreted the patient's laboratory data results. Patient has very slightly elevated leukocytosis and very slightly elevated anion gap. His lactic acid is normal. His CO2 is normal. No evidence of sepsis on the patient's laboratory data results. The preliminary chest x-ray result was interpreted by me. There is no obvious acute cardiopulmonary process. It is a poor inspiratory effort. Counseled pt/family regarding: lab results, diagnosis, need for follow-up, rad results Medical Desision Making - Independent Historian Additional History obtained from: Family - Diagnostic Testing Diagnostic test were ordered, analyzed, and reviewed by me: Yes Radiological Interpretation: Interpreted by me - Risk of complications The pt has a mod risk of morbidity or mortality based on: Need for prescription drug management - Departure Departure Disposition: Home Clinical Impression: Cellulitis of right ankle, Chronic cutaneous venous stasis ulcer Condition: Stable Critical Care Time: No Referrals: YURI TILLMAN MD [Primary Care Provider] - Follow up/PCP as directed MEGHANA AMADOR DPM [ACTIVE STAFF] - Follow up/PCP as directed Additional Instructions: Take your antibiotics and other medications as prescribed. Call your primary care provider tomorrow, 06/16/2024, to make arrangement for follow-up appointment. Call Dr. Cartwright, podiatry tomorrow morning, 06/16/2024 to make a follow-up appointment. Prescriptions: Levofloxacin [Levaquin 500 MG Tablet] 500 mg PO DAILY #7 tablet
[2024-06-15] MEDS ORDERED: Sodium Chloride 0.9% 1000 ML 1,000 ML ONE (20:10)
[2024-06-15] MEDS ORDERED: TYLENOL 325 MG ONE (20:10)
[2024-06-15] MEDS: Sodium Chloride 0.9% 1000 ML 1,000 ML IV SCH (20:11)
[2024-06-15] MEDS: TYLENOL 325 MG PO STA (20:12)
[2024-06-15 20:21] LABS: Absolute Neutrophil Ct (ANC) 8.37 x10^3/uL (1.78-5.38); BASOPHIL % 0.3 % (0.2-1.2); Basophil (Absolute #) 0.03 x10^3/uL (0.01-0.08); Eosinophil % 0.8 % (0.8-7.0); Eosinophil (Absolute #) 0.08 x10^3/uL (0.04-0.54); Hematocrit 43.6 % (40.1-51.0); Hemoglobin 13.8 g/dL (13.7-17.5); IMMATURE GRAN # 0.05 x10^3u/L (0.001-0.031); IMMATURE GRAN % 0.5 % (0.001-0.429); Lymphocyte (Absolute #) 0.73 x10^3/uL (1.32-3.57); Lymphocytes % 7.2 % (21.8-53.1); Mean Cell Volume 89.3 fL (79.0-92.2); Mean Corpuscular Hemoglobin 28.3 pg (25.7-32.2); Mean Corpuscular Hgb Concent. 31.7 g/dL (32.3-36.5); Mean Platelet Volume 10.1 fL (9.4-12.4); Monocyte (Absolute #) 0.94 x10^3/uL (0.30-0.82); Monocytes % 9.2 % (5.3-12.2); Platelet Count 160 x10^3/uL (163-337); Red Blood Count 4.88 x10^6/uL (4.63-6.08); Red Cell Distribution Width 13.1 % (11.6-14.4); White Blood Count 10.2 x10^3/uL (4.23-9.07)
[2024-06-15 20:34] LABS: ALBUMIN 4.2 g/dL (3.5-5.0); ANION GAP 15.3 MEQ/L (5-15); Calcium 8.9 mg/dL (8.4-10.2); Creatinine 1 0.94 mg/dL (0.66-1.25); EST GLOMERULAR FILTRATION RATE 85.6 ML/MIN; Potassium 3.3 mmol/L (3.5-5.1); Total Protein 8.3 g/dL (6.3-8.2)
[2024-06-15 21:04] LABS: INFLUENZA A NEGATIVE (NEGATIVE); INFLUENZA B NEGATIVE (NEGATIVE); RESPIRATORY SYNCTIAL VIRUS NEGATIVE (NEGATIVE); SARS-CoV-2 Xpert Express NEGATIVE (NEGATIVE)
[2024-06-15] MEDS ORDERED: Klor Con ONE (22:17)
[2024-06-15] MEDS ORDERED: Levofloxacin 500 MG Tablet ONE (22:17)
[2024-06-15] MEDS ORDERED: TRANDATE 20 MG/4 ML SYRINGE IV ONE (22:17)
[2024-06-15] MEDS: Klor Con PO ONE (22:21)
[2024-06-15] MEDS: Levofloxacin 500 MG Tablet PO ONE (22:21)
[2024-06-15] MEDS: TRANDATE 20 MG/4 ML SYRINGE IV ONE (22:21)
[2024-06-15] MEDS: ROCEPHIN 1 GM / 100 ML NaCl 1 GM/100 ML IVPB IV ONE (22:49)
[2024-06-15 23:08] VITALS: BP 116/76; PULSE 104; RESP 25; O2SAT 95
[2024-06-15 23:19] VITALS: TEMP 99.2
--- NOTE | 2024-06-16 08:49 | XRAY ---
Indication: Fever. Comparison: April 18, 2017 Portable apical lordotic chest is now underinflated accentuating cardiopulmonary structures. No focal infiltrate, consolidation, or large effusion. Heart borderline enlarged. Bony thorax intact with osteopenia, degenerative changes, and incidental bilateral humeral orthopedic hardware. Impression: Nonacute underinflated chest with chronic features.
== END 2024-06-16 00:05 | disposition home or self-care (01) ==
LOC: ED 19:33
DX: I83.213 Varicose veins of right lower extremity with both ulcer of ankle and inflammation (principal); L97.319 Non-pressure chronic ulcer of right ankle with unspecified severity; L03.115 Cellulitis of right lower limb; R50.9 Fever, unspecified; E78.5 Hyperlipidemia, unspecified; I10 Essential (primary) hypertension; Z79.891 Long term (current) use of opiate analgesic; Z79.899 Other long term (current) drug therapy
CPT/HCPCS: 0241U; 36000; 36415; 71045; 80053; 83605; 85025; 86308; 87040; 87070; 87077; 87186; 87651; 93041; 99284; J0696; A9270-GY